=== PATIENT | male | born 1980 | race Caucasian/White ===

== ENCOUNTER 2023-11-20 08:52 | Emergency (ER) | payer SELFPAY ==
[~2023-11-20] VITALS: Ht 172.7 cm; Wt 82.5 kg
[2023-11-20] MEDS ORDERED: TETanus/Pertussis (Acell)/Diphther VAC/PF (Tdap-Adult) 0.5ml syringe IMVAC ONE (09:35)
[2023-11-20 09:53] VITALS: BP 124/83; PULSE 99; RESP 18; TEMP 98.4; O2SAT 96
== END 2023-11-20 09:57 | disposition home or self-care (01) ==
LOC: ER 08:53
DX: S61.211A Laceration without foreign body of left index finger without damage to nail, initial encounter (principal); X58.XXXA Exposure to other specified factors, initial encounter; Y93.89 Activity, other specified; Y92.89 Other specified places as the place of occurrence of the external cause; Y99.8 Other external cause status
CPT/HCPCS: 12001; 90471; 90715; 99283